=== PATIENT | male | born 2000 | race Caucasian/White ===

== ENCOUNTER 2018-03-28 10:00 | Day surgery (SDC) | payer OTHER ==
[~2018-03-28 10:00] MED LIST: LACTATED RINGERS 1,000 ML IV SCH; LIDOCAINE 1% 20 ML VIAL (10MG/ML) FOR IV START INTRADERMA PRN; MIDAZOLAM 2 MG/2 ML VIAL IV PRN
[2018-03-28 10:19] VITALS: TEMP 98.6
--- NOTE | 2018-03-28 13:08 | P.PCN ---
Date of Procedure: 03/28/18 Procedure(s) Performed: Procedure: 1. Esophagogastroduodenoscopy and biopsy. 2. Colonoscopy and biopsy. Preoperative diagnosis: Abdominal pain, nausea and change in bowel habits. Postoperative diagnosis: 1. Mild antral gastritis and nonspecific rectal changes. 2. Multiple biopsies obtained from the duodenum, antrum, esophagus, terminal ileum, random colon and rectum. Preparation: HalfLytely prep. Sedation: Was provided by anesthesia. Brief clinical history: The patient is a 17-year-old male who is scheduled for this evaluation because of onset of abdominal pain, nausea and episodes of diarrhea and loose stools that he has been having since December of this year. This evaluation is to assess for celiac disease, inflammatory bowel disease or other pathology. Procedure: With the patient on his left lateral decubitus position and after informed consent and adequate sedation, I passed the Olympus-GIF 160 video upper endoscope through the cricopharyngeus down the esophagus. GE junction was around 42-43 cm from the incisors and there was no definite hiatal hernia or any evidence of esophagitis or complicated reflux disease. The endoscope was then passed into the stomach which was insufflated with air and inspected in detail including the retroflex view in the cardia. There was some mottling and erythema in the antrum but no ulcers or erosions. Pyloric channel, duodenal bulb, post bulbar area and descending duodenum appeared within normal limits. Because of his symptoms, I obtained biopsies from the duodenum, antrum and esophagus then the endoscope was withdrawn and I proceeded with the colonoscopy. Perianal area did not show any fissures or fistulas. There were no masses felt on digital rectal examination. The Olympus CFQ 160L video colonoscope was then inserted in the rectum in the usual fashion and advanced to the cecum. I intubated the ileocecal valve and examined the terminal ileum. There was nonspecific changes noted in the distal rectum, close to the anorectal junction , with occasional area of erythema and friability surrounded by, otherwise, normal-looking mucosa. The mucosa of the colon and terminal ileum, otherwise, was normal. I obtained biopsies from the terminal ileum and randomly from the colon and separately I obtained biopsies from the rectum then I retroflexed endoscope in the rectum before the endoscope was withdrawn. I also obtained a picture of the rectum. The patient tolerated the procedure well. Plan: The patient was reassured and I discussed with his parents. Will await biopsy results and make further plans based on his course and biopsy results. I will keep you updated on his progress.
[2018-03-28 13:18] VITALS: RESP 16
[2018-03-28 13:41] VITALS: BP 107/60; PULSE 70
== END 2018-03-28 14:13 | disposition home or self-care (01) ==
LOC: ORWHC2ENDO 10:00
DX: K29.50 Unspecified chronic gastritis without bleeding (principal); R19.7 Diarrhea, unspecified; K21.9 Gastro-esophageal reflux disease without esophagitis; R19.4 Change in bowel habit; Z79.2 Long term (current) use of antibiotics; Z79.899 Other long term (current) drug therapy; Z88.1 Allergy status to other antibiotic agents
CPT/HCPCS: 43239; 45380; 88305